=== PATIENT | female | born 1960 | race Caucasian/White ===

== ENCOUNTER → 2017-07-15 | Outpatient (CLI) | payer OTHER ==
[~2017-07-15] MED LIST: ABILIFY 2 MG2 M1 PO; ALPRAZOLAM; AMBIEN; CYMBALTA; EPIPEN0.3 MG/0.1 IM; IBUPROFEN 800800 MG PO; MOBIC7.5 MG PO; NORCO 5-325 TA1 EACH PO; OXYBUTYNIN 5 MG5 M2 PO; ZANAFLEX4 MG PO; ZOLOFT100 MG PO
--- NOTE | 2017-07-18 09:57 | PAINCON ---
[facility] [address] [place] [address] PAIN MANAGEMENT CONSULTATION Name: CHRISTOPHERBASIM L Room: [facility] ONEIDA Oconnor#: [id number] Admission: 07/15/17 Attend Phys: Leslie Evans Discharge: Date of : 62 Report #: [id number] THIS REPORT FOR: //name// CC: Dr. Raghav Laura The patient is a 57-year-old female seen in consultation at the request of Dr. Avilez for evaluation of pain in the low back and right leg. She notes she has episodic weakness with constant, shooting pain. She rates anywhere from 3-10 on a VAS. She denies specific antecedent trauma and overuse though notes pain began in September and has been getting worse since. Fortunately, she notes no paresthesia nor saddle anesthesia. She notes pain seems to be exacerbated with movement and gets some relief with rest, ice and ibuprofen. REVIEW OF SYSTEMS: Complete review of systems was attached to the chart and was gone over with the patient. She is . She does not smoke or drink alcohol to excess (quit smoking in 2002 and quit drinking in 1997). She enjoyed a remarkably good health. She has suffered from some posttraumatic stress disorder and depression, takes several central acting agents including sertraline, Abilify and melatonin at bedtime. Ibuprofen 600 mg t.i.d. for pain and Zyrtec for seasonal rhinitis. Remaining review of systems is noncontributory. She has had no axial back surgery. She has had multiple endoscopic abdominal surgeries including cholecystectomy and laparoscopy. 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 Pain impact score is fairly low averaging 70. PHYSICAL EXAMINATION: Reveals a 5 feet, 2 inches, 100 pound female, BMI 17.8 kilograms per meter squared. Blood pressure is spuriously low at ____, pulse 93, respirations 16. Cranial nerves 2-12 are grossly intact. Pupils are equal, react to light and accommodation. Extraocular muscles are intact. She is alert and oriented to person, place and time, judged to be a reasonable historian. Cervical range of motion is full. Upper extremity strength is preserved. Heart is regular and rhythmical without murmur. Lungs are clear to auscultation. Rises from chair using armrest. Diffuse tenderness across the low back and tender over the bilateral SI area. Gait is tandem. She can walk on her toes and heels. Straight leg raise is positive on the left, slight decreased left leg flexion, extension strength compared to the right. Abdominal exam is benign. DIAGNOSTIC STUDIES: Include MRI of the lumbar spine from 10/23/2016, which notes a large circumferential disk bulge at L4-L5. The thecal sac is narrowed at 0.6 cm. Does have marked facet arthropathy at L5-S1. [place] [address] PAIN MANAGEMENT CONSULTATION Name: CHRISTOPHERBASIM L [id number] Admission: 07/15/17 Attend Phys: Leslie Evans Discharge: Date of : 62 Report #: [id number] large circumferential disk bulge effacing the anterior thecal sac, canal is down to 0.7 cm. ASSESSMENT: Symptomatic lumbar radiculopathy secondary to spinal stenosis, component of SI mediated pain by clinical exam. RECOMMENDATIONS: We will seek authorization for epidural injection under fluoroscopy next week at L4-L5. Continue ibuprofen. If this affords good relief of the radicular pain component, we will consider addressing the spondylitic/SI mediated pain component at that time. Thank you for allowing me to participate in the patient's care. I will keep you abreast of her progress. <ELECTRONICALLY SIGNED> By: Ramone Laura DO 07/18/17 0957 1219 [id number] Laura DO /nt
== END ==
LOC: M.PC 02:54
DX: M48.061 Spinal stenosis, lumbar region without neurogenic claudication (principal); M54.16 Radiculopathy, lumbar region

== ENCOUNTER 2018-01-30 09:38 | Emergency (ER) | payer OTHER ==
[~2018-01-30] VITALS: Ht 157.5 cm; Wt 43.1 kg
[2018-01-30] MEDS ORDERED: NORCO 5-325 TA1 EACH PO ×2 (09:57→11:11)
[2018-01-30 11:21] VITALS: BP 101/40
== END 2018-01-30 11:23 | disposition home or self-care (01) ==
LOC: M.ERS 09:38
DX: M54.5 Low back pain (principal); Z90.49 Acquired absence of other specified parts of digestive tract; Z88.5 Allergy status to narcotic agent; Z91.030 Bee allergy status

== ENCOUNTER 2018-04-13 21:01 | Emergency (ER) | payer OTHER ==
[~2018-04-13] VITALS: Ht 157.5 cm; Wt 45.4 kg
[2018-04-13] MEDS ORDERED: CYCLOBENZAPRINE5 MG PO (23:22)
[2018-04-13] MEDS ORDERED: OXYCODONE HCL 55 MG PO (23:22)
[2018-04-13 23:34] VITALS: BP 156/75
== END 2018-04-13 23:34 | disposition home or self-care (01) ==
LOC: M.ERS 21:01
DX: S39.012A Strain of muscle, fascia and tendon of lower back, initial encounter (principal); Z90.49 Acquired absence of other specified parts of digestive tract; Z88.5 Allergy status to narcotic agent; Z91.030 Bee allergy status; X50.9XXA Other and unspecified overexertion or strenuous movements or postures, initial encounter; Y93.89 Activity, other specified; Y92.89 Other specified places as the place of occurrence of the external cause; Y99.8 Other external cause status

== ENCOUNTER 2018-10-10 18:50 | Emergency (ER) | payer OTHER ==
[~2018-10-10] VITALS: Ht 157.5 cm; Wt 43.1 kg
[~2018-10-10 18:50] MED LIST changes: +CYCLOBENZAPRINE5 MG PO; +OXYCODONE HCL 55 MG PO
[2018-10-10] MEDS ORDERED: ZYRTEC10 M5 PO (19:01)
[2018-10-10] MEDS ORDERED: PERCOCET PO (19:25)
[2018-10-10] MEDS ORDERED: MEDROLDOSEPACK PO (19:25)
[2018-10-10 19:40] VITALS: BP 124/80
== END 2018-10-10 19:41 | disposition home or self-care (01) ==
LOC: M.ERS 18:50
DX: M54.42 Lumbago with sciatica, left side (principal); Z90.49 Acquired absence of other specified parts of digestive tract; Z88.5 Allergy status to narcotic agent; Z91.030 Bee allergy status

== ENCOUNTER 2018-10-21 18:52 | Emergency (ER) | payer OTHER ==
[~2018-10-21] VITALS: Ht 157.5 cm; Wt 43.1 kg
[~2018-10-21 18:52] MED LIST changes: +MEDROLDOSEPACK PO; +PERCOCET PO; +ZYRTEC10 M5 PO
[2018-10-21] MEDS ORDERED: NORCO 5-325 TA1 EAC1 PO (19:49)
[2018-10-21] MEDS ORDERED: FLEXERIL PO (19:49)
[2018-10-21] MEDS ORDERED: LIDODERM1 EACH TRANSDERM ×2 (19:49→19:53)
[2018-10-21 20:22] VITALS: BP 120/99
== END 2018-10-21 20:22 | disposition home or self-care (01) ==
LOC: M.ERS 18:52
DX: M54.5 Low back pain (principal); Z90.49 Acquired absence of other specified parts of digestive tract; Z79.899 Other long term (current) drug therapy; Z88.6 Allergy status to analgesic agent; Z91.030 Bee allergy status

== ENCOUNTER → 2018-11-03 | Outpatient (CLI) | payer OTHER ==
[~2018-11-03] MED LIST changes: +FLEXERIL PO; +LIDODERM1 EACH TRANSDERM; +NORCO 5-325 TA1 EAC1 PO
== END ==
LOC: M.ULTRA 15:24
DX: M79.89 Other specified soft tissue disorders (principal)

== ENCOUNTER 2019-11-15 02:34 | Inpatient (IN) | payer OTHER ==
[~2019-11-15] VITALS: Ht 157.5 cm; Wt 42.2 kg
[2019-11-15 02:41] VITALS: BP 135/85
[2019-11-15 02:54] LABS: ABSOLUTE BASOPHILS 0.1 thou/uL (0.0-0.2); ABSOLUTE EOSINOPHILS 0.2 thou/uL (0.0-0.7); ABSOLUTE LYMPHOCYTES 2.4 thou/uL (0.8-5.3); ABSOLUTE MONOCYTES 0.7 thou/uL (0.0-1.2); ABSOLUTE NEUTROPHILS 5.6 thou/uL (1.6-8.1); BASOPHILS 0.9 %; EOSINOPHILS 1.9 %; HEMATOCRIT 36.4 % (37.0-47.0); HEMOGLOBIN 12.6 gm/dL (12.0-15.0); LYMPHOCYTES 26.9 %; MCH 30.7 pg (26.0-34.0); MCHC 34.5 g/dL (28.0-37.0); MCV 89.1 fL (80.0-100.0); MONOCYTES 8.2 %; MPV 8.4 fl. (7.2-11.1); NUCLEATED RBCS 0 /100WBC; PLATELET COUNT* 241 thou/uL (150-400); POLYS 62.1 %; RBC 4.08 mil/uL (4.20-5.00)
[2019-11-15 03:05] LABS: CREATININE 0.7 mg/dL (0.6-1.3); POTASSIUM 3.2 mmol/L (3.5-5.1)
[2019-11-15 03:09] LABS: ALBUMIN 3.8 g/dL (3.4-5.0); PROTIME 10.7 Seconds (9.20-11.50); TOTAL BILIRUBIN 0.3 mg/dL (<0.1-1.0); TOTAL PROTEIN 7.1 g/dL (6.4-8.2)
[2019-11-15 05:24] VITALS: BP 120/71
[2019-11-15 05:30] VITALS: BP 112/91
[2019-11-15] MEDS ORDERED: IBU600 MG PO (06:45)
[2019-11-15] MEDS ORDERED: MELATONIN3 M1 PO (06:47)
[2019-11-15] MEDS ORDERED: LORCET 5-325 M1 EACH PO (06:47)
[2019-11-15] MEDS ORDERED: GLUCOSAMINE1000 MG PO (06:49)
[2019-11-15 08:00] VITALS: BP 108/53
[2019-11-15 10:35] LABS: CALCIUM 8.5 mg/dL (8.5-10.1); CREATININE 0.6 mg/dL (0.6-1.3); MAGNESIUM 1.8 mg/dL (1.8-2.4)
[2019-11-15 10:45] LABS: CHOLESTEROL 175 mg/dL (<200); HDL CHOLESTEROL 69 mg/dL (>40); LDL CHOLESTEROL 94 mg/dL (<100); TC:HDL 2.5 Ratio (Not establshd); TRIGLYCERIDE 62 mg/dL (<150); VLDL 12 mg/dL (<40)
[2019-11-15 10:47] LABS: SERUM ASSESSMENT Clear
[2019-11-15 12:02] VITALS: BP 140/74
--- NOTE | 2019-11-15 14:41 | 2DMMODE ---
[place] [address] 2 D/M-MODE ECHOCARDIOGRAM Name: CHRISTOPHERBASIM LYNN Room: [address] Anastasia#: [id number] Admission: 11/15/19 Attend Phys: David León, Discharge: Date of : 62 Date of Service: 11/15/19 1441 Report #: [id number] THIS REPORT FOR: cc: Elvis Quintanilla MD, Tuongvan T. MD Liston, Michael J. MD [facility] ~ APPROVED REPORT Study performed: 11/15/2019 09:50:16 EXAM: Comprehensive 2D, Doppler, and color-flow Echocardiogram Patient Location: In-Patient Room #: [facility] BSA: 1.38 HR: 72 bpm BP: 108/53 mmHg Other Information Study Quality: Good Indications Chest Pain 2D Dimensions IVSd: 8.44 (7-11mm) LVOT Diam: 18.20 (18-24mm) LVDd: 42.90 mm PWd: 6.88 (7-11mm) Ascending Ao: 26.84 (22-36mm) LVDs: 27.44 (25-40mm) Aortic Root: 24.22 mm Volumes Left Atrial Volume (Systole) LA ESV Index: 15.40 mL/m2 Aortic Valve AoV Peak Ab.: 1.08 m/s AO Peak Gr.: 4.63 mmHg LVOT Max P.33 mmHg AO Mean Gr.: 2.37 mmHg LVOT Mean P.13 mmHg LVOT Max V: 0.76 m/s AO V2 VTI: 19.72 cm LVOT Mean V: 0.49 m/s SOPHIE (VTI): 2.21 cm2 LVOT V1 VTI: 16.74 [place] [address] 2 D/M-MODE ECHOCARDIOGRAM Name: BASIM WHITE Room: [address]#: [id number] Admission: 11/15/19 Attend Phys: David León, Discharge: Date of : 62 Date of Service: 11/15/19 1441 Report #: [id number] E/A Ratio: 0.77 MV Decel. Time: 294.22 ms MV E Max Ab.: 0.55 m/s MV PHT: 85.32 ms MVA (PHT): 2.58 cm2 TDI E/Lateral E': 4.58 E/Medial E': 9.17 Medial E' Ab.: 0.06 m/s Lateral E' Ab.: 0.12 m/s Pulmonary Valve PV Peak Ab.: 0.86 m/s PV Peak Gr.: 2.93 mmHg Left Ventricle The left ventricle is normal size. The inferior and inferoseptal wall appear hypokinetic. There is normal left ventricular wall thickness. Left ventricular systolic function is mildly decreased. LVEF is 45-50%. Grade I - abnormal relaxation pattern. Right Ventricle The right ventricle is normal size. The right ventricular systolic function is normal. Atria The left atrium size is normal. The right atrium size is normal. Aortic Valve The aortic valve is normal in structure. No aortic regurgitation is present. There is no aortic valvular stenosis. Mitral Valve The mitral valve is normal in structure. There is no mitral valve regurgitation noted. No evidence of mitral valve stenosis. Tricuspid Valve The tricuspid valve is normal in structure. There is no tricuspid valve regurgitation noted. Pulmonic Valve The pulmonary valve is normal in structure. There is no pulmonic valvular regurgitation. Great Vessels The aortic root is normal in size. IVC is [place] [address] 2 D/M-MODE ECHOCARDIOGRAM Name: CHRISTOPHERBASIM REDN Room: [address] M..#: [id number] Admission: 11/15/19 Attend Phys: David León, Discharge: Date of : 62 Date of Service: 11/15/19 1441 Report #: [id number] collapses >50% with inspiration. Pericardium There is no pericardial effusion. <Conclusion> The left ventricle is normal size. There is normal left ventricular wall thickness. Left ventricular systolic function is mildly decreased. LVEF is 45-50%. Grade I - abnormal relaxation pattern. The inferior and inferoseptal wall appear hypokinetic. IVC is normal in size and collapses >50% with inspiration. <ELECTRONICALLY SIGNED> By: Sebastián Diaz MD, FACC 11/15/19 1441 1441 1441 Sebastián Diaz MD, FACC /INF
--- NOTE | 2019-11-15 17:19 | EKG ---
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 : 1960 Requested By: Ivy Del Real Order Number: [id number] MD: Ronny Holland Measurements Intervals [place] Rate: 77 P: 76 IA: 143 QRS: 82 QRSD: 103 T: 53 QT: 436 QTc: 494 Interpretive Statements Sinus rhythm ST depr, consider ischemia, inferior leads Borderline prolonged QT interval Compared to ECG 11/15/2019 02:39:29 Early repolarization no longer present Possible ischemia still present Electronically Signed On 11-15-2019 17:19:07 CDT by Ronny Holland [email or web address] <ELECTRONICALLY SIGNED> By: Ronny Holland MD, [facility] 11/15/19 1719 0437 0437 Ronny Holland MD, FAC /EPI
--- NOTE | 2019-11-15 17:20 | EKG ---
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1960 Requested By: Ivy Del Real Order Number: [id number] MD: Ronny Holland Measurements Intervals [place] Rate: 80 P: 77 IA: 136 QRS: 81 QRSD: 85 T: -86 QT: 427 QTc: 493 Interpretive Statements Sinus rhythm Repol abnrm suggests ischemia, inferior leads No previous ECG available for comparison Electronically Signed On 11-15-2019 17:20:26 CDT by Ronny Holland [email or web address] <ELECTRONICALLY SIGNED> By: Ronny Holland MD, [facility] 11/15/19 1720 0239 0239 Ronny Holland MD, [facility] /EPI
[2019-11-15 20:00] VITALS: BP 129/75
[2019-11-16] VITALS (16 sets, daily range): BP systolic 107–151; BP diastolic 60–77
--- NOTE | 2019-11-16 11:26 | CARD ---
[address] [address] CARDIAC CATH REPORT Name: CHRISTOPHERBASIM ANAND Room: [address] ADM IN [facility]#: [id number] Admission: 11/16/19 Attend Phys: David León MD Discharge: Date of : 62 Report #: [id number] THIS REPORT FOR: //name// cc: Elvis Quintanilla MD, Tuongvan T. MD ~ APPROVED REPORT Study performed: 11/16/2019 09:08:25 Patient Details Patient Status: In-Patient Room #: 212 The patient is a 59 year-old female Event Personnel Ronny Holland Program Management Specialist, Paloma Chen RN Social Services Specialist, Michael Arrington RTR Scrub, My Dunbar RTR Monitor Procedures Performed Art Access - R femoral artery, Left Heart Cath w/or w/o Coronaries LHC , Hemostasis w/ Mynx Indication Abnormal ECG, Chest pain Risk Factors Hypercholesterolemia, Hypertension Procedure Narrative The patient was brought electively to the Cardiac Catheterization Laboratory and was prepped and draped in a sterile manner. The right femoral was infiltrated with 2% Lidocaine subcutaneous anesthesia. A 6F [place] sheath was inserted into the right femoral artery. Coronary angiography was performed using coronary diagnostic catheters. The right coronary system was accessed and visualized with a 6F JR4 and 5F 3DRC catheter. The left coronary system was accessed and visualized with a 6F JL4 catheter. The left ventricle was accessed and visualized with a 6F Pigtail catheter. Left ventricular/Aortic Valve gradient assessed via catheter pullback. Left ventriculogram was performed in GARCIA projection. Pre-demployment femoral angiogram was performed . Closure device was deployed with a 6 Fr Mynx. The patient tolerated the procedure well and there were no complications associated with the procedure. There was no hematoma. Intra[place] [address] CARDIAC CATH REPORT Name: BASIM WHITE Room: [address] [place] ..#: [id number] Admission: 11/16/19 Attend Phys: David León MD Discharge: Date of : 62 Report #: [id number] Sedation start time: 09:45 Case end Time: 10:15 Fentanyl 50 mcg Versed 3 mg Fluoro Time: 4.6 minutes Dose: DAP 49783 cGycm2 242 mGy Contrast Type and Amount: Visipaque 110 ml Coronary Angiography The patient's coronary anatomy is right dominant. Diagnostic Cath Left Main 0% narrowing LAD 30% mid LAD narrowing with 40% proximal first diagonal narrowing Circumflex 0% narrowing Right Coronary 30% ostial and proximal right coronary narrowing, this being a dominant vessel Left Ventriculography The left ventricle is normal in size with normal contractility. The left ventricular ejection fraction is estimated to be 60-65%. Left ventricular wall motion abnormalities are not present. There is no mitral insufficiency. Hemodynamics The aortic pressure is 131/45 mmHg with a mean of 61 mmHg. The left ventricular pressure is 129/-7 mmHg with a mean of mmHg. The left ventricular end diastolic pressure is 1 mmHg. There was no gradient across the aortic valve upon pullback. Conclusion 1. Mild coronary artery disease characterized by the following: A 30% mid LAD narrowing with 40% proximal first diagonal narrowing B dominant right coronary with 30% ostial/ proximal narrowing 2. Normal left ventricular systolic function, estimated ejection fraction being 60 - 65% 3. Normal left-sided hemodynamic study. Recommendations [place] [address] CARDIAC CATH REPORT Name: BASIM WHITE Room: [address] [place] .R.#: [id number] Admission: 11/16/19 Attend Phys: David León MD Discharge: Date of : 62 Report #: [id number] Diagnostic Cath Approved by: Ronny Holland MD Date/Time: 11/16/2019 11:25:18 <ELECTRONICALLY SIGNED> By: Ronny Holland MD, [facility] 11/16/19 1125 1125 1125Jodwayne Holland MD, FACC /INF
[2019-11-16] MEDS ORDERED: LIPITOR10 MG PO (16:46)
[2019-11-16] MEDS ORDERED: ASA81BEC PO (16:46)
== END 2019-11-16 18:47 | disposition home or self-care (01) | DRG 287 ==
LOC: M.ERS 02:34 → M.2W 04:47 → M.TBA-ER 04:47 → M.2W 05:29
PROVIDERS: Internal Medicine; Personal Emergency Response Attendant; ADMIT Internal Medicine; ATTEND Internal Medicine
PROC: 4A023N7 Measurement of Cardiac Sampling and Pressure, Left Heart, Percutaneous Approach (ICD-10-PCS; principal; 2019-11-16)
PROC: B215YZZ Fluoroscopy of Left Heart using Other Contrast (ICD-10-PCS; principal; 2019-11-16)
PROC: B211YZZ Fluoroscopy of Multiple Coronary Arteries using Other Contrast (ICD-10-PCS; principal; 2019-11-16)
DX: I25.119 Atherosclerotic heart disease of native coronary artery with unspecified angina pectoris (principal); I30.9 Acute pericarditis, unspecified; G89.29 Other chronic pain; E78.5 Hyperlipidemia, unspecified; F32.9 Major depressive disorder, single episode, unspecified; F41.9 Anxiety disorder, unspecified; J44.9 Chronic obstructive pulmonary disease, unspecified; M54.2 Cervicalgia; E87.6 Hypokalemia; Z90.49 Acquired absence of other specified parts of digestive tract; Z82.49 Family history of ischemic heart disease and other diseases of the circulatory system; Z79.899 Other long term (current) drug therapy; Z88.8 Allergy status to other drugs, medicaments and biological substances; Z91.030 Bee allergy status